=== PATIENT | female | born 1960 | race Hispanic/Latino ===

== ENCOUNTER 2017-05-11 01:16 | Observation (INO) | payer MEDICARE, MEDICAID ==
[2017-05-11 02:00] LABS: #Basophils 0.1 thou/uL (0.0-0.2); #Eosinphils 0.1 thou/uL (0.0-0.7); #Lymphocytes 1.9 thou/uL (1.20-3.40); #Monocytes 0.8 thou/uL (0.11-0.59); #Neutrophils 7.4 thou/uL (1.40-6.50); %Basophils 0.6 % (0.0-1.0); %Eosinophils 0.6 % (0.0-10.0); %Lymphocytes 18.7 % (21.0-51.0); %Monocytes 8.1 % (0.0-10.0); Hemoglobin 13.5 g/dL (12.0-16.0); Mean Corpuscular HGB CONC 34.2 g/dL (32.0-36.0); Mean Corpuscular Hemoglobin 27.2 pg (27.0-31.0); Mean Corpuscular Volume 79.5 fl (81.0-99.0); Mean Platelet Volume 9.2 fL (7.4-10.4); Platelet Count 232 thou/uL (130-400); RBC Distribution Width 12.1 % (11.5-14.5); Red Blood Cell (RBC) Count 4.97 mill/uL (4.20-5.40); White Blood Cell (WBC) Count 10.3 thou/uL (4.8-10.8)
[2017-05-11 02:23] LABS: ALT (SGPT) 25 U/L (8-55); AST (SGOT) 18 U/L (5-34); Alkaline Phosphatase 149 U/L (40-150); Anion Gap 14 mmol/L (10-20); BUN (Urea Nitrogen) 20 mg/dL (9.8-20.1); Bilirubin, Total 0.3 mg/dL (0.2-1.2); CK (CPK) 56 U/L (29-168); Calc. Creatinine Clearance 0 mL/min (70-130); Calcium 10.1 mg/dL (7.8-10.44); Carbon Dioxide 22 mmol/L (22-29); Chloride 105 mmol/L (98-107); Estimated GFR-MDRD 74; Globulin 3.9 g/dL (2.4-3.5); Glucose 493 mg/dL (70-105); Potassium 4.2 mmol/L (3.5-5.1); Protein, Total 7.9 g/dL (6.0-8.3); Sodium 137 mmol/L (136-145)
[2017-05-11 02:26] LABS: CKMB 0.7 ng/mL (0-6.6); Troponin I 0.015 ng/mL (< 0.028)
[2017-05-11] MEDS ORDERED: Nitroglycerin 2% Ointment 1 INCH/1 GM Packet ONE (02:33)
[2017-05-11] MEDS ORDERED: Nitroglycerin 0.4 MG TAB (25 Tab Bottle) ONE (02:33)
[2017-05-11 04:25] VITALS: BMI 25.7
[2017-05-11] MEDS ORDERED: Ondansetron HCl/PF 4 MG/2 ML Vial IVP PRN (05:07)
[2017-05-11] MEDS ORDERED: Ondansetron ODT 4 MG TAB SL PRN (05:07)
[2017-05-11] MEDS ORDERED: Acetaminophen 325 MG TAB PO PRN (05:07)
[2017-05-11 05:55] LABS: Troponin I 0.013 ng/mL (< 0.028)
[2017-05-11 08:16] VITALS: BP 130/66; TEMP 98.3
--- NOTE | 2017-05-11 08:38 | RAD ---
CHEST 1 VIEW: HISTORY: A 57-year-old female with chest pain. FINDINGS: Monitor leads overlie the chest. Heart size is within normal limits. The lungs are clear. IMPRESSION: No acute intrathoracic disease. Atherosclerosis of the aorta. No acute process. POS: [facility]
[2017-05-11] MEDS ORDERED: Aspirin 325 MG TAB PO SCH (09:00)
[2017-05-11 09:01] LABS: Acetaminophen Less than 6.0 mcg/mL (10.0-30.0); Alcohol Less than 10 mg/dL (Less than 10); Salicylate Less than 8.0 mg/dL (15.0-30.0)
[2017-05-11 10:22] LABS: Amphetamine Not Detected (NotDetected); Barbiturates Screen Not Detected (NotDetected); Benzodiazepine Screen Not Detected (NotDetected); Cocaine Metabolite Screen Not Detected (NotDetected); Medtox Control Line Valid? VALID (VALID); Medtox Reader # READER 4; Methadone Not Detected (NotDetected); Methamphetamine Not Detected (NotDetected); Opiate Screen Not Detected (NotDetected); Oxycodone Screen Not Detected (NotDetected); Phencyclidine (PCP) Not Detected (NotDetected); THC/Cannabinoid Screen Not Detected (NotDetected); Tricyclic Screen Not Detected (NotDetected)
--- NOTE | 2017-05-11 19:35 | HP ---
REASON FOR ADMISSION: Chest pain. HISTORY OF PRESENT ILLNESS: The patient gives history of traveling as a passenger in a car from [place] to [place] to see her daughter. Around 10:00 p.m., she started developing retrosternal chest pain with radiation to the left side of her neck and back. This pain lasted for a few minutes. This concerned her as she has had recent OR per patient. She has had a right radial approach catheterization done 2 weeks back in [facility] by [facility], Dr. Dalton and was found to had 70% and 50% blockage , she was for medical management with no stents placed. She has a followup appointment on 05/16/2017. She has no complaints of cough or expectoration. No complaints of fever. PAST MEDICAL AND SURGICAL HISTORY: History of hypertension, dyslipidemia, diabetes mellitus type 2, cholecystectomy, hysterectomy, recent myocardial infarction with cardiac catheterization done and 2-vessel disease, history of PTSD, bipolar disorder. CURRENT MEDICATIONS: Patient is on aspirin 81 mg p.o. daily, Plavix 75 mg p.o. daily, Lipitor 20 mg p.o. daily, Lexapro 10 mg p.o. daily, Lantus 20 units subcutaneous q.a.m., lisinopril 5 mg p.o. daily. ALLERGIES: MORPHINE. PERSONAL HISTORY: Does not abuse alcohol or drugs. No history of smoking. FAMILY HISTORY: Mother at the age of 73 years. She has had history of OR , stroke, end-stage renal disease on hemodialysis. Father at the age of 70 years, he had a stroke, hypertension, and dyslipidemia. REVIEW OF SYSTEMS: The following complete review of systems was negative, unless otherwise mentioned in the HPI or below: Constitutional: Weight loss or gain, ability to conduct usual activities. Skin: Rash, itching. Eyes: Double vision, pain. ENT/Mouth: Nose bleeding, neck stiffness, pain, tenderness. Cardiovascular: Palpitations, dyspnea on exertion, orthopnea. Respiratory: Shortness of breath, wheezing, cough, hemoptysis, fever or night sweats. Gastrointestinal: Poor appetite, abdominal pain, heartburn, nausea, vomiting, constipation, or diarrhea. Genitourinary: Urgency, frequency, dysuria, nocturia. Musculoskeletal: Pain, swelling. Neurologic/Psychiatric: Anxiety, depression. Allergy/Immunologic: Skin rash, bleeding tendency. PHYSICAL EXAMINATION: GENERAL: The patient is a 57-year-old female who is currently not in any acute distress. VITAL SIGNS: Blood pressure 156/90, pulse 94 per minute, respiratory rate 18 per minute, temperature 98.9 degrees Fahrenheit, saturating 95% on 2 liters nasal cannula. NECK: Supple, no elevated JVD. HEENT: Eyes, extraocular muscles intact. Pupils reacting to light. Oral cavity, mucous membranes are moist. No exudates or congestion. CARDIOVASCULAR: S1, S2 heard. Regular rhythm. RESPIRATORY: Air entry 2+ bilateral. No rales or rhonchi. ABDOMEN: Soft, bowel sounds heard. No tenderness, rigidity or guarding. EXTREMITIES: No peripheral edema or calf tenderness. VASCULAR SYSTEM: Peripheral pulses 2+ bilateral, no ischemic ulcerations or gangrene. CENTRAL NERVOUS SYSTEM: No gross focal deficits seen. Patient is alert, awake , oriented well. PSYCHIATRIC: The patient's mood is euthymic. No hallucinations or delusions. LABORATORY AND X-RAY FINDINGS: EKG done shows normal sinus rhythm at 95 beats per minute, there is nonspecific ST-T wave changes. White count 10, H and H 13 and 39, platelet count 232. Electrolytes are stable. Troponin x3 is negative. Lipase is 50, serum glucose was 493. Urine drug screen is negative. Chest x- ray done shows no acute cardiopulmonary abnormalities. CLINICAL IMPRESSION AND PLAN: The patient will be shortly discharged home as her 3 sets of cardiac enzymes are negative and her EKG does not show any signs of ischemia at present. She has had recent cardiac catheterization done 2 weeks back and is found to have had 2-vessel disease. She has a followup appointment on the 8th of this month with her [facility], Dr. Dalton. She is currently chest pain free, ambulating and is comfortable. In view of this, she has been advised to follow up with her [facility] as early as possible. She is wanting to go home and will be shortly discharged home. She needs to continue aspirin, Plavix along with Lipitor and lisinopril as before. It is unclear why she was not given a beta ирина after cath, ?bardycardia. She is otherwise hemodynamically stable for discharge now. Please note this is a same day observation admit and discharge note. RUPESH
== END 2017-05-11 10:49 | disposition home or self-care (01) ==
LOC: ERS 01:16 → 2SW 03:00
PROVIDERS: ADMIT Hospitalist; ATTEND Hospitalist
DX: R07.2 Precordial pain (principal); I10 Essential (primary) hypertension; E78.5 Hyperlipidemia, unspecified; E11.9 Type 2 diabetes mellitus without complications; I25.2 Old myocardial infarction; F43.10 Post-traumatic stress disorder, unspecified; F31.9 Bipolar disorder, unspecified; Z79.02 Long term (current) use of antithrombotics/antiplatelets; Z79.82 Long term (current) use of aspirin; Z79.4 Long term (current) use of insulin; Z79.899 Other long term (current) drug therapy; Z88.5 Allergy status to narcotic agent; Z90.49 Acquired absence of other specified parts of digestive tract; Z90.710 Acquired absence of both cervix and uterus; Z98.890 Other specified postprocedural states; Z87.891 Personal history of nicotine dependence; Z82.49 Family history of ischemic heart disease and other diseases of the circulatory system
CPT/HCPCS: 36415; 36416; 71045; 80053; 80306; 80307; 82553; 83690; 84484; 85025; 93005